=== PATIENT | female | born 1950 | race Caucasian/White ===

== ENCOUNTER 2021-08-15 23:05 | Inpatient (IN) | payer OTHER ==
[~2021-08-15] VITALS: Ht 152.4 cm; Wt 44.6 kg
[2021-08-15 23:07] VITALS: BP 138/76
[2021-08-15] MEDS ORDERED: ZOCOR20 MG PO (23:11)
[2021-08-15] MEDS ORDERED: FOSAMAX 70 MG T70 MG PO (23:12)
[2021-08-15] MEDS ORDERED: BENAZEPRIL HCL40 MG PO (23:12)
[2021-08-16] VITALS (24 sets, daily range): BP systolic 106–165; BP diastolic 56–89
[2021-08-16 00:19] LABS: BASOPHILS 0.5 % (0.0-2.0); EOSINOPHILS 0.3 % (0.0-3.0); HEMATOCRIT 30.7 % (37.0-47.0); HEMOGLOBIN 10.9 gm/dL (12.0-15.0); LYMPHOCYTES 10.2 % (24.0-44.0); MCH 36.4 pg (26.0-34.0); MCHC 35.4 g/dL (28.0-37.0); MCV 102.9 fL (80.0-100.0); MONOCYTES 8.9 % (1.0-8.0); PLATELET COUNT 146 thou/uL (150-400); POLYS 80.1 % (36.0-66.0); RBC 2.98 mil/uL (4.20-5.00); RDW 12.7 % (10.5-14.5); WBC 6.3 thou/uL (4.0-11.0)
[2021-08-16 00:29] LABS: CREATININE 0.5 mg/dL (0.6-1.0); POTASSIUM 4.2 mmol/L (3.5-5.1); TOTAL BILIRUBIN 0.6 mg/dL (0.2-1.0)
[2021-08-16] MEDS ORDERED: OMEPRAZOLE 20 M20 M1 PO (03:52)
[2021-08-16 05:48] LABS: URINE CREATININE-RANDOM* 38.4 mg/dL
[2021-08-16 06:34] LABS: MAGNESIUM 1.5 mg/dL (1.8-2.4); PHOSPHORUS 2.9 mg/dL (2.6-4.7)
[2021-08-16 07:10] LABS: FOLIC ACID 14.6 ng/mL (8.6-58.9)
[2021-08-16 08:36] LABS: URINE BILIRUBIN NEGATIVE (Negative); URINE BLOOD 2+ (Negative); URINE CLARITY CLEAR; URINE COLOR YELLOW; URINE GLUCOSE-RANDOM* NEGATIVE (Negative); URINE KETONES NEGATIVE (Negative); URINE NITRITE-REFLEX NEGATIVE (Negative); URINE PROTEIN (DIPSTICK) NEGATIVE (Negative); URINE SPECIFIC GRAVITY <= 1.005 (1.005-1.035); URINE UROBILINOGEN 0.2 E.U./dl (0.2-1.0)
[2021-08-16 08:39] LABS: URINE LEUKOCYTES-REFLEX 2+ (Negative)
[2021-08-16 08:51] LABS: CASTS None Seen /LPF (None Seen); SQUAMOUS 0-3 Few /LPF (0-3)
[2021-08-16 08:52] LABS: BACTERIA-REFLEX 1-9 Few /HPF (None Seen); CRYSTALS None Seen /LPF (None Seen); URINE RBC 1-2 Rare /HPF (NONE SEEN); WBC CLUMPS Occasional (None Seen)
--- NOTE | 2021-08-16 13:30 | NUR ---
PT ADMITTED TODAY FROM ED AT 1330 TO ROOM 246. ADMISSION ASSESSMENT COMPLETED.
--- NOTE | 2021-08-16 18:49 | NUR ---
NEW ADMIT PATIENT PROGRESSING TOWARD GOALS EVIDENCED BY IMPROVING SODIUM LAB VALUES, CORRECT MAGNESIUM LEVEL, AND CIWA SCORE DECREASED THROUGHOUT SHIFT. PATIENT ON ROOM AIR AND WITH SATS ABOVE 92%. PATIENT SLEPT MOST OF THE SHIFT AND AT TIMES HARD TO ROUSE. PATIENT ABLE TO STATE NAME, DATE, AND CURRENT PRESIDENT BUT UNSURE ABOUT SITUATION THAT BROUGHT HER TO HOSPITAL.
[2021-08-17] VITALS (22 sets, daily range): BP systolic 122–166; BP diastolic 67–92
--- NOTE | 2021-08-17 05:47 | NUR ---
ASSUMED CARE OF PT AT 1900. TALKED TO PT SISTER AT 1930, UPDATED ON PT STATUS. PT DESAT TO LOW 80'S OVERNIGHT. PLACED ON 3L NC. O2 SAT IMPROVED. WILL CONTINUE TO FOLLOW POC.
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
[2021-08-18 03:28] LABS: HEMOGLOBIN 11.4 gm/dL (12.0-15.0); MCH 36.5 pg (26.0-34.0); MCHC 34.7 g/dL (28.0-37.0); MCV 105.2 fL (80.0-100.0); RBC 3.13 mil/uL (4.20-5.00); RDW 12.6 % (10.5-14.5); WBC 5.4 thou/uL (4.0-11.0)
[2021-08-18 03:48] LABS: CALCIUM 8.7 mg/dL (8.5-10.1); CREATININE 0.5 mg/dL (0.6-1.0); MAGNESIUM 1.7 mg/dL (1.8-2.4); PHOSPHORUS 3.5 mg/dL (2.5-4.9); POTASSIUM 3.4 mmol/L (3.5-5.1)
[2021-08-18 05:16] VITALS: BP 139/81
[2021-08-18 07:30] VITALS: BP 136/86
[2021-08-18 11:30] VITALS: BP 164/98
[2021-08-18 13:17] LABS: MAGNESIUM 2.4 mg/dL (1.8-2.4); POTASSIUM 3.3 mmol/L (3.5-5.1)
[2021-08-18 16:50] VITALS: BP 161/91
--- NOTE | 2021-08-18 17:30 | NUR ---
Pt here with ethol w/d, hyponatremia and weakness. She lives with her sister Imelda who has been trying to care for her but also providing beer to her. Imelda was here this and pt under [facility] this afternoon. Pt was not able to participate in PT/OT evals. Pt's sister interested in snf options as well as ethol rehab programs. SNF listing and ethol tx programs left with unit RN to give to N[facility] tomorrow am. Cm can initiate SNF referrals early next week once the pt is able to participate in therapy and with dc planning conversation. Per the care team, the pt will likely not be able to go directly to an ethol tx program due to her profound weakness. Case discussed with the care team.
--- NOTE | 2021-08-18 17:46 | NUR ---
THIS MORNING UNTIL EARLY THIS AFTERNOON PATIENT WAS ALERT TO PERSON, PLACE (HOSPITAL), MONTH AND YEAR. SHE WAS COOPERATIVE, FOLLOWING COMMANDS, PASSED BEDSIDE SWALLOW EVAL. THE DAY WENT ON PATIENT BECAME INCREASINGLY RESTLESS AND DELIRIOUS. MULTIPLE TIMES SHE REMOVED HER GOWN AND TELEMETRY AND WOULD POSITION HERSELF TO ATTEMPT TO EXIT THE BED AT THE HEAD. SHE WAS NEVER COMBATIVE. CIWA SCORES RANGED FROM 5 TO 17, BECOMING PROGRESSIVELY WORSE THE DAY WENT ON. IV ATIVAN PRN WAS GIVEN (TOTAL OF 6MG THIS SHIFT), WHICH WOULD HELP WITH SYMPTOMS FOR VERY SHORT PERIODS OF TIME. SEIZURE PRECAUTIONS IN PLACE, BED ALARM ON. K AND MG REPLACED.
[2021-08-18 20:15] VITALS: BP 185/109
[2021-08-18 21:04] LABS: AMP/METHAMP Negative (Negative); BARBITURATES Negative (Negative); BENZODIAZEPINES Negative (Negative); COCAINE Negative (Negative); METHADONE Negative (Negative); OPIATES Negative (Negative); PCP Negative (Negative)
[2021-08-18 23:48] VITALS: BP 165/94
[2021-08-19 02:35] LABS: HEMATOCRIT 34.1 % (37.0-47.0); HEMOGLOBIN 11.9 gm/dL (12.0-15.0); MCH 35.8 pg (26.0-34.0); MCHC 34.9 g/dL (28.0-37.0); MCV 102.5 fL (80.0-100.0); RBC 3.33 mil/uL (4.20-5.00); RDW 12.8 % (10.5-14.5)
[2021-08-19 02:50] LABS: CALCIUM 8.8 mg/dL (8.5-10.1); CREATININE 0.5 mg/dL (0.6-1.0); POTASSIUM 3.4 mmol/L (3.5-5.1)
[2021-08-19 04:45] VITALS: BP 155/96
--- NOTE | 2021-08-19 05:16 | NUR ---
RESTED QUIETLY MOST OF SHIFT. TURNS SELF. CIWA Q4H AND ATIVAN GIVEN PER ORDERS NEEDED. REMIANS A/O X4 THIS SHIFT BUT FORGETFUL AT TIMES. WORKING ON GOALS AND PLAN OF CARE FOR NOC. CONTINUE TO ASSES CLOSELY.
[2021-08-19 07:30] VITALS: BP 141/99
[2021-08-19 11:00] VITALS: BP 109/72
[2021-08-19 15:10] VITALS: BP 121/81
--- NOTE | 2021-08-19 18:20 | NUR ---
PATIENT REMAINED ORIENTED X3-4, OCCASIONALLY FORGETFUL AND DROWSY CONSISTENTLY THIS SHIFT. SHE DID NOT REQUIRE ATIVAN PER CIWA PROTOCOL; SCORED MOSTLY FOR MODERATE TREMORS. SEIZURE AND FALL PRECAUTIONS REMAINED IN PLACE. SHE PARTICIPATED WITH PT/OT. SHE STOOD AT EOB, BUT DID NOT TAKE STEPS PER THERAPY, HR 155 SINUS TACH WITH THIS ACTIVITY (90-1TEENS AT REST). PATIENT NEEDED TO BE SET UP AND WOKEN UP FOR MEALS, BUT SHE WAS ABLE TO FEED HERSELF. I PAGED DR. DOMINGUEZ LATER THIS SHIFT TO REPORT URINE OUTPUT TOTAL 65 AT 1700, SUBADEQUATE PO INTAKE. IVFS INITIATED PER ORDER. ORIGINALLY ACOSTA WAS TO BE REMOVED TODAY, BUT DUE TO NEED TO MONITOR ACCURATE UO OVERNIGHT DR. DOMINGUEZ ORDERED TO KEEP ACOSTA IN PLACE. WILL REEVALUATE NEED TOMORROW.
[2021-08-19 19:15] VITALS: BP 135/89
[2021-08-20 03:48] LABS: HEMATOCRIT 30.9 % (37.0-47.0); MCH 36.7 pg (26.0-34.0); MCHC 35.6 g/dL (28.0-37.0); MCV 102.9 fL (80.0-100.0); RDW 12.5 % (10.5-14.5); WBC 5.6 thou/uL (4.0-11.0)
[2021-08-20 03:58] LABS: CALCIUM 8.8 mg/dL (8.5-10.1); CREATININE 0.7 mg/dL (0.6-1.0); POTASSIUM 3.8 mmol/L (3.5-5.1)
[2021-08-20 05:12] VITALS: BP 134/67
--- NOTE | 2021-08-20 06:03 | NUR ---
SLEPT MOST OF SHIFT. DENIES COMPLAINTS OF PAIN OR SHORTNESS OF AIR. TURNS SELF. REMAINS A/O X4 BUT FORGETFUL AT TIMES. ATIVAN GIVEN NEEDED. AT PRESENT TIME. PATIENT RESTING WITHOUT COMPLAINTS. CONTINUE TO ASSES.
[2021-08-20 08:28] VITALS: BP 157/88
[2021-08-20 11:56] VITALS: BP 141/76
--- NOTE | 2021-08-20 17:31 | NUR ---
PT RESTED IN BED ALL OF SHIFT AND GAVE ATIVAN ONLY IN THE AM PER CIWA. PT TAKING IN GOOD PO. IVF AND ACOSTA CATTHETER DISCONTINUED. WILL CONTINUE TO ASSESSS.
[2021-08-20 19:32] VITALS: BP 148/89
[2021-08-21 04:27] LABS: HEMATOCRIT 30.2 % (37.0-47.0); HEMOGLOBIN 10.7 gm/dL (12.0-15.0); MCHC 35.4 g/dL (28.0-37.0); MCV 101.6 fL (80.0-100.0); RBC 2.97 mil/uL (4.20-5.00); WBC 5.8 thou/uL (4.0-11.0)
[2021-08-21 04:35] LABS: CALCIUM 8.9 mg/dL (8.5-10.1); CREATININE 0.6 mg/dL (0.6-1.0); POTASSIUM 3.6 mmol/L (3.5-5.1)
[2021-08-21 05:02] VITALS: BP 155/98
--- NOTE | 2021-08-21 07:38 | NUR ---
SLEPT PART OF SHIFT. TRYS TO GET OUT OF BED WHEN NEEDING TO VOID BUT THEN FALLS BACK TO SLEEP. NO COMPLAINTS OF PAIN. ASSISTED TO COMODE NEEDED. CONTINUE TO ASSES.
[2021-08-21 08:57] VITALS: BP 153/89
[2021-08-21 08:58] VITALS: BP 119/73
--- NOTE | 2021-08-21 11:28 | NUR ---
SPOKE WITH PATIENT WHO IS ALERT. DISCUSSED NEED FOR POST ACUTE CARE. PATIENT REPORTS IT IS FINE TO DISCUSS WITH SISTER. SP WITH SISTER EMI [phone]. DISCUSSED POST ACUTE CARE. SHE IS INTERESTED IN [facility] FOR REVIEW. FAXED [facility] FOR REVIEW.
[2021-08-21 12:28] VITALS: BP 120/73
[2021-08-21 16:28] VITALS: BP 140/85
--- NOTE | 2021-08-21 16:33 | NUR ---
NO ACCUTE EVENTS THIS SHIFT, VITAL SIGNS STABLE. TACHYCARDIC WITH ACTIVITY (HR 130-150), BUT RESOLVES QUICKLY WITH REST. SHE AMBULATED TO BEDSIDE COMMODE MULTIPLE TIMES THROUGHOUT THE DAY, REQUIRED STANDBY ASSIST DUE TO WEAKNESS/TREMORS. ASSISTED WITH BATH AND HAIR WASH. SHE REQUIRED NO PRN ATIVAN FOR WITHDRAWL SYMPTOMS. SEIZURE AND HIGH FALL RISK PRECAUTIONS REMAIN ON AND IN PLACE.
[2021-08-21 20:21] VITALS: BP 171/91
[2021-08-22 05:05] VITALS: BP 133/65
--- NOTE | 2021-08-22 05:21 | NUR ---
PT IS SLEEPING CAN BE IMPULSIVE AT TIMES PADED SIDED RAILS. LUNGS ARE CLEAR . ABDOMEN IS SOFT UP TO BATHROOM WITH ASISTANCE TO BSC TO VOID WITH NURSING ASSISTANCE. CALL LIGHT WITHIN REACH IF NEEDS ASSISTANCE. ENCOURAGE USE OF CALLL LIGHT WITH ASSISTANCE.
[2021-08-22 08:43] VITALS: BP 133/68
[2021-08-22 12:20] VITALS: BP 123/69
[2021-08-22 16:13] VITALS: BP 142/88
--- NOTE | 2021-08-22 17:32 | NUR ---
Updated [facility] with therapy [facility]. [facility] with [facility] met with patient today. Updated sister awaiting auth for post acute care.
--- NOTE | 2021-08-22 18:17 | NUR ---
PATIENT IS A/OX3, IMPULSIVE AT TIMES BUT USED CALL LIGHT MOST OF THE DAY. DENIES PAIN AT THIS TIME. PT/OT WORKED WITH PATIENT TODAY. USED WALKER WITH PT FOR AMBULATION. CIWA DONE PER PROTOCOL.
--- NOTE | 2021-08-23 03:15 | NUR ---
PT IS ALERT AND ORIENTED X4. IS IMPULSIVE AT TIMES DOESNT USE THE CALL LIGHT BED ALARM ON FOR PT SAFETY AND YELLOW ARM BAND ON AND SOCKS. LUNGS ARE CLEAR ON ROOM AIR. ABDOMEN IS SOFT AND FLAT BOWEL SOUNDS ACTIVE. NO EDEMA NOTED SOME BRUISING NOTED NO SKIN ISSUES. CALL LIGHT WITHIN REACH IF NEEDS ASSISTANCE PER NURSING
[2021-08-23 08:10] VITALS: BP 135/62
[2021-08-23 09:40] LABS: URINE BILIRUBIN NEGATIVE (Negative); URINE BLOOD NEGATIVE (Negative); URINE CLARITY CLEAR; URINE COLOR YELLOW; URINE GLUCOSE-RANDOM* NEGATIVE (Negative); URINE KETONES NEGATIVE (Negative); URINE LEUKOCYTES-REFLEX NEGATIVE (Negative); URINE NITRITE-REFLEX NEGATIVE (Negative); URINE PROTEIN (DIPSTICK) NEGATIVE (Negative); URINE UROBILINOGEN 0.2 E.U./dl (0.2-1.0)
[2021-08-23 11:22] VITALS: BP 127/64
[2021-08-23 15:14] VITALS: BP 129/60
--- NOTE | 2021-08-23 15:22 | NUR ---
spoke with [facility] they have auth but no bed available today. plan dc in am. Updated sister and phys. plan dc in am
--- NOTE | 2021-08-23 17:22 | NUR ---
PT HAD A GOOD SHIFT ANSWERED MOST QUESTIONS APPROPIATLY THROUGHOUT THE SHIFT. PT USED CALL LIGHT AND ASKED FOR HELP EVERYTIME SHE NEEDED TO USE THE RESTROOM. PT HAD 1 BOWEL MOVEMENT. PT HAD SOME COMPLAINTS OF PAIN THIS AFTERNOON AND RECEIVED TYLENOL THAT ELIMINATED THE PAIN. PT DENIES ANY OTHER COMPLAINTS.
[2021-08-23 20:02] VITALS: BP 146/84
--- NOTE | 2021-08-23 23:08 | NUR ---
ASSESSMENT COMPLTED. PT CALLS BEFORE GOING TO THE BATHROOM BUT WILL NOT WAIT FOR HELP AT ALL. EVEN WITH REMINDERS, SHE FORGETS. ALERT AND ORIENTED WITH CONFUSION. ON ROOM AIR,NO DISTRESS. URINARY FREQUENCY AND URGENCY, SR ON TELEMETRY. AFEBRILE. CALM DEMEANOR AT THIS TIME. FALL PREC IN PLACE, CALL LIGHT WITHIN REACH.
[2021-08-24 04:13] VITALS: BP 135/58
[2021-08-24 07:49] VITALS: BP 130/62
[2021-08-24] MEDS ORDERED: PRENATAL PO (11:18)
[2021-08-24 11:19] VITALS: BP 129/61
--- NOTE | 2021-08-24 14:37 | NUR ---
REPORT CALLED TO DAVIDE BRUMFIELD AT [facility].
--- NOTE | 2021-08-24 15:17 | NUR ---
patient to dc to [facility] today. Chart copied. Transfer forms faxed. Transport for [phone]. Notified patient and sister.
--- NOTE | 2021-08-24 15:50 | NUR ---
TRANSPORTATION PICKED UP PT IN A WHEEL CHAIR. PT PLACED INTO WHEEL CHAIR AND LEFT THE UNIT WITHOUT INCIDENT. PT PACKET WENT WITH TRANSPORTAION.
== END 2021-08-24 16:06 | DRG 640 ==
LOC: ER 23:05 → EROBS 08-16 01:16 → 2N 08-16 01:16 → EROBS 08-16 01:17 → ICU 08-16 13:16 → 2N 08-17 23:16
PROVIDERS: Emergency Medicine; Nurse Practitioner Family; ADMIT Hospitalist; ATTEND Hospitalist
DX: E87.1 Hypo-osmolality and hyponatremia (principal); G93.41 Metabolic encephalopathy; E46 Unspecified protein-calorie malnutrition; Z68.1 Body mass index [BMI] 19.9 or less, adult; F10.129 Alcohol abuse with intoxication, unspecified; E87.6 Hypokalemia; Z88.2 Allergy status to sulfonamides; Z79.899 Other long term (current) drug therapy; Y90.8 Blood alcohol level of 240 mg/100 ml or more; R74.01 Elevation of levels of liver transaminase levels; D64.9 Anemia, unspecified; D69.6 Thrombocytopenia, unspecified; E83.42 Hypomagnesemia; Z20.822 Contact with and (suspected) exposure to COVID-19
CPT/HCPCS: 10078; 10081